=== PATIENT | female | born 1985 | race Caucasian/White ===

== ENCOUNTER 2025-07-13 22:34 | Emergency (ER) | payer OTHER, SELFPAY ==
[2025-07-13 22:36] VITALS: BP 121/68
[2025-07-13 22:48] VITALS: BP 112/82
--- NOTE | 2025-07-13 23:29 | ED.GENMED ---
History of Present Illness
General
Chief Complaint: Abdominal Pain
Source: patient
Exam Limitations: none
Time Seen by Provider: 07/13/25 22:46
Nursing documentation reviewed up to this point in time: agreed with
History of Present Illness
History of Present Illness:
Patient is a 40-year-old female who presents to the emergency department with abdominal pain. She describes a sharp, stabbing pain in her right mid abdomen radiating around her right side. She states pain started around 4 PM and was initially
somewhat vague however seemed to migrate into her right mid abdomen over the course of a few hours. She states that around 6 PM she began vomiting and has had multiple episodes since. She reports subjective fevers and diminished appetite at home
today. No diarrhea or constipation. No dysuria. No abnormal vaginal bleeding or discharge. Her last menstrual period ended 1 week ago.
Patient has no past history of abdominal surgeries.
Review of Systems
Review of Systems
Allergies reviewed?: Yes
All Other Systems: ROS reviewed and negative except as documented in HPI and ROS
Phy Exam
Physical Exam
Physical Exam:
Vitals: Patient's vital signs are stable. Afebrile
General: Patient is in no apparent distress. Nontoxic appearing
Skin: Warm and dry, no rashes or lesions
Head: Normocephalic, atraumatic
Eyes: Sclera nonicteric.
Throat: Protecting airway
Neck: Normal ROM, no cervical spine tenderness, no meningismus
Cardiac: Regular rate and rhythm, no murmurs.
Pulm: Normal respiratory effort. Lungs clear bilaterally
.
Abdomen: Abdomen soft. Moderate tenderness in right mid abdomen/right upper quadrant. No rebound or guarding. No focal tenderness McBurney's point. Negative Chappell sign.
Extremities: Contractures of bilateral lower extremities. Distal pulses intact
Neuro: AAOx3. Grossly intact
Psychiatric: Normal affect.
Course
Orders/Labs/Results
Orders:
Orders
07/13/25 23:18
0.9% Sodium Chloride 1000 ml [Nss] 1,000 ml IV BOLUS
Ketorolac [Toradol] 15 mg IV NOW STA
Ondansetron Injectable [Zofran] 4 mg IV NOW STA
07/13/25 23:19
Test Result ONCE
07/13/25 23:41
Complete Blood Count/With Diff Urgent
Comprehensive Metabolic Panel Urgent
HCG, Serum Qualitative Screen Urgent
Lipase Urgent
07/14/25 00:02
CT Abd/pelvis W Iv Cont Urgent
Reason For Exam: Right mid abdominal pain, vomiting
07/14/25 00:51
HYDROmorphone [Dilaudid] 0.25 mg IV NOW STA
07/14/25 03:26
Tamsulosin [Flomax] 0.4 mg PO NOW STA
07/14/25 03:35
Urinalysis Reflex To Culture Urgent
Date Specimen was Collected: 07/14/25
Time Specimen was Collected: 03:34
Urine Microscopic Reflex Cult Urgent
Abnormal Lab Results
07/13/25 07/14/25
23:41 03:35
MCH 31.1 H pg
(27.0-31.0)
MCHC 32.9 L g/dL
(33.0-37.0)
MPV 11.2 H fL
(7.4-10.4)
Absolute Neuts (auto) 7.8 H 10^3/uL
(1.4-6.5)
Absolute Lymphs (auto) 0.4 L 10^3/uL
(1.2-3.4)
Neutrophils % 92.2 H %
(42.2-75.2)
Lymphocytes % 4.6 L %
(20.5-51.1)
Creatinine 0.3 L mg/dL
(0.6-1.0)
Glucose 135 H mg/dl
(70-99)
Urine Ketones 2+ A
(Negative)
Ur Occult Blood Reflex 4+ A
(Negative)
Urine RBC 30-40 A /HPF
(0-2)
Urine Bacteria (Reflex) Few A
(Negative)
Urine Albumin (Reflex) 2+ A
(Neg - Trace)
07/13/25 23:41
07/13/25 23:41
Vital Signs
Initial and Last Documented VS:
Initial Vital Signs
Temp Pulse Resp BP Pulse Ox
99.2 F 77 18 121/68 98
07/13/25 22:36 07/13/25 22:36 07/13/25 22:36 07/13/25 22:36 07/13/25 22:36
Last Documented Vital Signs
Temp Pulse Resp BP Pulse Ox
99.2 F 57 17 110/73 97
07/13/25 22:36 07/14/25 03:15 07/14/25 03:15 07/14/25 03:00 07/14/25 02:15
MDM/Problems Addressed
Differential Diagnosis Includes:
Not limited to: Gastroenteritis, biliary colic, acute cholecystitis, choledocholithiasis, pancreatitis, acute appendicitis, renal colic, etc.
MDM/Problems Addressed:
40-year-old female with relatively acute onset right sided abdominal pain with a few episodes of vomiting. No fever, urinary symptoms, or diarrhea. Vitals and physical exam as above. Patient does have tenderness in right mid abdomen however no
focal tenderness McBurney's point. No rebound or guarding. Cardio/pulmonary assessment unremarkable.
Differential broad and includes possible biliary colic, appendicitis, renal colic, pyelonephritis, etc.
ED plan: Labs, UA, CT scan abdomen/pelvis with IV contrast. Will treat symptoms, give IV fluids and reassess
Update: Labs without acute abnormalities. Pain has improved following medication administration in ED. CT scan reveals a 6 mm stone in right mid ureter with mild hydro. Discussed with patient. She is afebrile without evidence of renal
insufficiency and well-controlled pain at this moment�I do feel appropriate for trial of outpatient stone passage at home.
Do not suspect associated infection however disposition pending UA to ensure no UTI
Update: UA with many RBCs however no evidence of infection. Patient remains in no discomfort and feels comfortable discharge home. She will follow-up with urology outpatient. Strict return precautions discussed.
Chronic conditions affecting care:
N/A
Acute Exacerbation and/or Progression of Chronic Illness:
N/A
*Radiology
Radiology exam reviewed: radiology read reviewed
*Pulse Oximetry
SaO2: 98
Oxygen Mode of Delivery: Room air
Patient hypoxic: no
*EKG
Interpreted by ED Provider?: NA
*Kiosk Sales Representative Interpretation
Rate: Kiosk Sales Representative- N/A
*Critical Care Note
Total Time (30-74mins, 75-104mins- exclusive of procedures): Not Applicable
ED Attending Note
-
Portions of this chart may have been created with voice recognition software.� Occasional wrong word or��sound alike� substitutions may have occurred due to the inherent limitations of voice recognition software.
Discharge Plan
Departure
Patient Disposition: Home (Routine Discharge)
Date of Disposition: 07/14/25
Time of Disposition: 04:31
Patient with high blood pressure during this ER visit?: No
Condition: Good
Discharge Problem:
Calculus of right ureter
Instructions: Kidney Stones (DC)
Prescriptions:
New
tamsulosin 0.4 mg capsule
0.4 mg PO DAILY Qty: 14 0RF
ondansetron 4 mg tablet,disintegrating
4 mg PO Q8H PRN (Reason: nausea and vomiting) Qty: 7 0RF
oxycodone 5 mg tablet
5 mg PO Q8H PRN (Reason: Pain) Qty: 7 0RF
Referrals:
Sudhir Gonzalez MD [Primary Care Provider, Internal Medicine]
Khris Torres Jr., MD [Active, Urology] - Follow up in 5-7 days
Activity Restrictions/Additional Instructions:
RETURN TO THE EMERGENCY DEPARTMENT ANY FEVER, CHILLS, INTRACTABLE NAUSEA/VOMITING, PERSISTENT/WORSENING FLANK OR ABDOMINAL PAIN, INABILITY TO URINATE, OR ANY OTHER CONCERNS
- As discussed�your lab work showed no acute abnormalities today in the emergency department. Your CT scan did reveal a 6 mm stone in your right mid ureter.
- You should take 600 mg of ibuprofen every 6-8 hours as needed for pain. You can also take Tylenol. For intractable pain, a prescription for oxycodone has been sent to your pharmacy. This may cause drowsiness you should not take prior to driving.
- Continue to stay well-hydrated. Take Flomax daily or until the stone passes. Strain your urine.
- Follow-up with urology for further evaluation/management to ensure that your symptoms improve
Monitor your symptoms closely and return to the emergency department with any acute worsening/new symptoms or any signs of infection
Interventions
Interventions:
*Risk Screen - Suicide Last Done: 07/13/25 22:36
*General Assessment Last Done: 07/14/25 00:00
*Neglect/Abuse Screening Last Done: 07/13/25 22:36
*ED- Fall Risk Assessment Last Done: 07/14/25 00:00
*ED COVID-19 Vaccine History Last Done: 07/14/25 00:00
*ED Influenza Vaccine History Last Done: 07/14/25 00:00
*Nursing Disposition Last Done: 07/14/25 05:46
MZ-Pwlswq-Vspkqxwett Assessment Last Done: 07/13/25 22:55
Discharge Date and Time
Discharge Date/Time: 07/14/25 05:15
Print Language: HUNGARIAN
[2025-07-13] MEDS: NSS 1000 IV (23:48)
[2025-07-13] MEDS: TORADOL 15 MG IV (23:49)
[2025-07-13] MEDS: ZOFRAN 4 MG IV (23:49)
[2025-07-14] VITALS: BP 118/84; BMI 22.0
[2025-07-14 00:06] LABS: HCG, Serum Qualitative Screen Negative
[2025-07-14 00:07] LABS: Hematocrit 40.4 % (37.0-47.0); Hemoglobin 13.3 g/dL (12.0-16.0); Mean Corp Hgb Conc. 32.9 g/dL (33.0-37.0); Mean Corpuscular Volume 94.6 fL (81.0-99.0); Nucleated Red Blood Cells % 0 %; Platelet Count 198 10^3/uL (130-400); Red Cell Dist. Width 12.8 % (11.5-14.5)
[2025-07-14 00:16] LABS: ALT (SGPT) 28 U/L (0-35); AST (SGOT) 35 U/L (14-36); Albumin 4.7 g/dl (3.5-5.0); Alkaline Phosphatase 69 U/L (38-126); Blood Urea Nitrogen 17 mg/dl (7-17); Calcium 9.9 mg/dl (8.4-10.2); Carbon Dioxide 28 mmol/L (22-30); Chloride 103 mmol/L (98-107); Estimated Creatinine Clearance 110 ml/min; Glucose 135 mg/dl (70-99); Lipase 99 U/L (23-300); Potassium 4.7 mmol/L (3.5-5.1); Sodium 136 mmol/L (135-145); Total Protein 7.7 g/dl (6.3-8.2); eGFR > 60.00
[2025-07-14 01:56] VITALS: BP 103/70
[2025-07-14 02:00] VITALS: BP 98/69
[2025-07-14 03:00] VITALS: BP 110/73
[2025-07-14 03:56] LABS: Urine Character Clear (Clear)
[2025-07-14] MEDS: FLOMAX 0.4 MG PO (04:18)
[2025-07-14 04:40] LABS: Urine Squamous Cell >30 /LPF (Few)
[2025-07-14 04:41] LABS: Urine Red Blood Cell 30-40 /HPF (0-2); Urine White Cell 0-2 /HPF (0-5)
== END 2025-07-14 05:15 | disposition home or self-care (01) ==
LOC: EMR 22:34
PROVIDERS: Physician Assistant; EMERGENCY PHYSICIAN Emergency Medicine; PRIMARYCARE PHYSICIAN Internal Medicine
DX: N13.2 Hydronephrosis with renal and ureteral calculous obstruction (principal)
CPT/HCPCS: 96374; 96375; 96361; 99284; 74177; 80053; 81003; 81015; 83690; 84703; 85025; Q9967